=== PATIENT | female | born 1990 | race Caucasian/White ===

== ENCOUNTER → 2016-06-24 | Day surgery (SDC) | payer BC ==
[2016-06-17 12:35] VITALS: Ht 162.6 cm; Wt 62.7 kg
--- NOTE | 2016-06-21 14:12 | HISTORY & PHYSICAL EXAMINATION ---
DATE OF ADMISSION: 06/24/2016 CHIEF COMPLAINT: Pelvic pain and dyspareunia. HISTORY OF PRESENT ILLNESS: The patient is a 26-year-old nullip. Her general health is good. She has had painful periods for over 8 years. Initially, she was started on control to control the periods. The pain then resolved and then over the next several years, began to gradually come back. She describes the pain with her periods that started a week before her periods and lasts a week during her periods. It is severe, incapacitating, unresponsive to nonnarcotic pain relievers and she has difficulty functioning due to the pain. She also has over a year of severe pain on intercourse. This is described as pain on deep penetration and it is painful enough that she avoids having intercourse. She is presently being scheduled for a diagnostic laparoscopic D\T\C. She had a transvaginal ultrasound done on 05/25/2016 that was normal and she will be scheduled for diagnostic laparoscopic D\T\C with suspected endometriosis. PAST MEDICAL HISTORY: ALLERGIES: No known drug allergies. PAST SURGICAL HISTORY: No previous surgery. MEDICAL HISTORY: She has a history of migraines for 2 years, been on oral contraceptives for 10 years. SOCIAL HISTORY: No smoking. No excessive alcohol intake. Works at a [employer]. FAMILY HISTORY: Mom is 58, has had endometriosis and a total abdominal hysterectomy following the of her second child. Dad is in his 50s, in good health. She has 1 sister, age 22, in good health. REVIEW OF SYSTEMS: She has a history of migraines for 2 years. No symptoms of frequent severe, bladder infections, or ear infections. PHYSICAL EXAMINATION: GENERAL: Well-developed and well-nourished 26-year-old white female, alert and oriented x3 and cooperative, in no acute distress, appeared her stated age. EYES: Conjunctivae are pink. Sclerae white. No evidence of jaundice. EARS: Had normal light reflex bilaterally. NOSE: Had normal mucosa. Septum is midline. There were no polyps. THROAT: No erythema or evidence of infection. Teeth are in good state of repair. HEAD: Normocephalic. Normal distribution of hair. NECK: Supple. Trachea midline. Thyroid is not enlarged. There is no adenopathy appreciated. Both carotids are of good intensity. CHEST: Clear to auscultation and percussion. No wheezes, rales or rhonchi appreciated. HEART: Had regular rhythm. S1 and S2 are normal. BREASTS: Normal. ABDOMEN: Soft and nontender. PELVIC: Revealed a normal appearing cervix. Bimanual exam revealed tenderness in the area of the uterosacral ligaments. MUSCULOSKELETAL: Revealed no calf tenderness. IMPRESSIONS OF THIS CASE: Severe dysmenorrhea, dyspareunia, and suspected endometriosis.
[~2016-06-24] VITALS: Ht 162.6 cm; Wt 62.7 kg
[~2016-06-24] MED LIST: ATROPINE SULFATE 0.1 MG/ML 5ML SYR IV PRN; BCPILLS PO; DEXAMETHASONE SOD INJ 4 MG/ML VIAL ONE; EpHEDrine SULFATE INJ 50 MG/ML AMP IV PRN; FENTANYL CITRATE INJ 50 MCG/1 ML 2 ML VIAL ONE; GLYCOPYRROLATE INJ 0.2 MG/ML VIAL ONE; KETOROLAC TROMETHAMINE 30 MG/ML VIAL ONE; LACTATED RINGER'S 1000ML 1,000 ML IV SCH; LIDOCAINE HCL 2% 2 ML VIAL (20MG/ML) ONE; MIDAZOLAM HCL 1 MG/ML 2ML VIAL ONE; NADO20TA PO; NAPR1TAB9 PO; NEOSTIGMINE METHYLSULFATE 5 MG/5 ML SYR ONE; ONDANSETRON INJ 2 MG/ML 2 ML VIAL ONE; PROMETHAZINE HCL INJ 25 MG/ML 1 ML VIAL ONE; PROPOFOL IV EMULSION 10 MG/ML 20 ML VIAL IV ONE; ROCURONIUM BROMIDE 10 MG/ML 5 ML VIAL ONE; SCOPOLAMINE 1.5 MG TDSY TD ONE; SODIUM CHLORIDE 0.9% INJ 10 ML VIAL ONE; SUCCINYLCHOLINE CHLORIDE 20 MG/ML 10 ML VIAL IV ONE
--- NOTE | 2016-06-24 12:42 | History & Physical Bridge Note ---
H&P Re-Evaluation Bridge Note: I have examined the patient, reviewed the History & Physical and in the interval since the performance of the History & Physical I have noted the following changes of clinical significance: No changes noted
[2016-06-24] MEDS: BUPIVACAINE/EPINEPHRINE 0.5% MPF 1:200,000 30 ML VIAL ONE ×2 (13:09→13:34)
[2016-06-24] MEDS: FENTANYL CITRATE INJ 50 MCG/1 ML 2 ML VIAL IV PRN ×3 (13:56→14:12)
--- NOTE | 2016-06-24 14:47 | OPERATIVE REPORT ---
DATE OF OPERATION: 06/24/2016 PROCEDURES: D\T\C, diagnostic laparoscopy with peritoneal biopsy, cauterization of endometrial implants. PREOPERATIVE DIAGNOSES: Pelvic pain, severe dysmenorrhea, dyspareunia and suspected endometriosis. POSTOPERATIVE DIAGNOSIS: Extensive endometriosis. SURGEON: Dr. Angulo. ESTIMATED BLOOD LOSS: 10 mL. ANESTHESIA: General. OPERATIVE FINDINGS AND PROCEDURE: The patient was brought to the OR table, correctly identified by armband and conversation. Lower abdomen and umbilical area were painted with Betadine solution along with the vagina and perineum. Then the abdomen and perineum were draped in the usual sterile fashion. Gaspar catheter was used to empty the bladder. Careful pelvic exam under anesthesia revealed a normal size anteverted uterus. There were no adnexal masses appreciated. Weighted speculum was placed in the posterior vagina. Anterior lip of the cervix grasped with a single-tooth tenaculum. Uterus was sounded to 8 cm. Cervix was dilated with graduated dilators. Small sharp serrated curette was used to curette out the endometrial cavity and then an acorn cannula was inserted in the cervical canal for manipulation of the uterus. The subumbilical area was now infiltrated with local with epinephrine. Subumbilical stab wound was placed and then a Veress needle was inserted into the abdominal cavity. Position was checked with normal saline. Then 2 liters of carbon dioxide gas was passed under low pressure. The incision was then widened laterally. The Veress needle was removed and a large cannula and trocar was inserted. Trocar was removed. Laparoscope was inserted. Good visualization of pelvic structures was obtained at this time. Second puncture site was made in the midline 3 fingerbreadths above the pelvic bone. This area was also infiltrated with local with epinephrine. Stab wound was placed and a 5 mm trocar and sleeve was inserted under direct visualization. There was a lot of reflux blood in the peritoneal cavity and I used a gravely suction porcelain technician to wash the blood out and then I took photos. The patient had extensive endometriosis involving the cul-de-sac between the 2 uterosacral ligaments, lateral pelvic abreu; however, both ovaries were freely mobile. Both tubes were freely mobile. I saw no involvement of the ovarian surface with endometriosis. There was some endometriosis on the bladder flap. I took 2 biopsies on the bladder flap of endometriosis for pathological confirmation and during the manipulation some of the lesions on the lateral pelvic abreu started to bleed and so I used a bipolar cauterization to superficially cauterize those bleeding areas. Following this, I took photographs after the biopsies and cauterization, after diagnosis was made and staging was performed, gas was expressed manually. Instruments were removed. Ports were cleansed with Betadine and then sutured with interrupted Vicryl suture. I attest to the content of the Intraoperative Record and any orders documented therein. Any exceptio ns are noted below.
[2016-06-24 14:49] VITALS: TEMP 36.5
--- NOTE | 2016-06-24 15:14 | Anesthesia Progress Nt - [facility] ---
Anesthesia Post Op Note Date & Time Jun 24, 2016 at 15:13 Vital Signs Pain Intensity: 0 Vital Signs Past 12 Hours Date Time Temp Pulse Resp B/P Pulse Ox O2 Delivery O2 Flow Rate FiO2 06/24/16 14:49 36.5 63 16 101/60 100 Room Air 65 06/24/16 14:41 36.5 06/24/16 14:40 64 16 100 06/24/16 14:40 63 16 06/24/16 14:38 118/76 06/24/16 14:35 58 22 100 06/24/16 14:35 58 22 06/24/16 14:33 116/75 06/24/16 14:30 57 18 99 06/24/16 14:30 57 18 06/24/16 14:28 113/74 06/24/16 14:25 56 17 06/24/16 14:25 57 17 99 06/24/16 14:23 120/76 06/24/16 14:20 61 11 06/24/16 14:20 60 11 100 06/24/16 14:20 Room Air 06/24/16 14:18 118/71 06/24/16 14:15 55 12 100 06/24/16 14:15 55 12 06/24/16 14:13 116/74 06/24/16 14:10 55 16 100 06/24/16 14:10 55 16 06/24/16 14:08 119/78 06/24/16 14:05 61 19 100 06/24/16 14:05 61 19 06/24/16 14:03 125/77 06/24/16 14:00 59 12 06/24/16 14:00 59 12 100 06/24/16 13:58 118/94 06/24/16 13:55 65 12 06/24/16 13:55 66 12 100 06/24/16 13:53 127/80 06/24/16 13:50 77 19 100 06/24/16 13:50 79 19 06/24/16 13:48 130/81 06/24/16 13:45 93 11 100 06/24/16 13:45 92 11 06/24/16 13:43 36.5 94 16 136/78 100 Diffusion Mask 5 06/24/16 11:49 37.0 86 16 122/86 100 Room Air Notes Mental Status: alert / awake / arousable, participated in evaluation Pt Amnestic to Procedure: Yes Nausea / Vomiting: adequately controlled Pain: adequately controlled Airway Patency, RR, SpO2: stable & adequate BP & HR: stable & adequate Hydration State: stable & adequate Anesthetic Complications: no major complications apparent
[2016-06-24 15:22] VITALS: BP 115/76; PULSE 61; O2SAT 100
== END | disposition home or self-care (01) ==
LOC: X.SURG 11:38
PROVIDERS: ATTEND Obstetrics & Gynecology
DX: N80.0 Endometriosis of uterus (principal); G43.909 Migraine, unspecified, not intractable, without status migrainosus; N94.6 Dysmenorrhea, unspecified; N94.19 Other specified dyspareunia

== ENCOUNTER → 2017-08-16 | Outpatient (CLI) | payer BC ==
[~2017-08-16] MED LIST changes: -ATROPINE SULFATE 0.1 MG/ML 5ML SYR IV PRN; -DEXAMETHASONE SOD INJ 4 MG/ML VIAL ONE; -EpHEDrine SULFATE INJ 50 MG/ML AMP IV PRN; -FENTANYL CITRATE INJ 50 MCG/1 ML 2 ML VIAL ONE; -GLYCOPYRROLATE INJ 0.2 MG/ML VIAL ONE; -KETOROLAC TROMETHAMINE 30 MG/ML VIAL ONE; -LACTATED RINGER'S 1000ML 1,000 ML IV SCH; -LIDOCAINE HCL 2% 2 ML VIAL (20MG/ML) ONE; -MIDAZOLAM HCL 1 MG/ML 2ML VIAL ONE; -NEOSTIGMINE METHYLSULFATE 5 MG/5 ML SYR ONE; -ONDANSETRON INJ 2 MG/ML 2 ML VIAL ONE; -PROMETHAZINE HCL INJ 25 MG/ML 1 ML VIAL ONE; -PROPOFOL IV EMULSION 10 MG/ML 20 ML VIAL IV ONE; -ROCURONIUM BROMIDE 10 MG/ML 5 ML VIAL ONE; -SCOPOLAMINE 1.5 MG TDSY TD ONE; -SODIUM CHLORIDE 0.9% INJ 10 ML VIAL ONE; -SUCCINYLCHOLINE CHLORIDE 20 MG/ML 10 ML VIAL IV ONE
== END | disposition home or self-care (01) ==
LOC: C.PAPS 09:26
PROVIDERS: ATTEND Obstetrics & Gynecology
DX: Z01.419 Encounter for gynecological examination (general) (routine) without abnormal findings (principal)